=== PATIENT | male | born 1945 | race Caucasian/White ===

== ENCOUNTER 2017-02-02 16:05 | Observation (INO) | payer MEDICARE ==
--- NOTE | ~2017-02-02 | PRECARD ---
H&P [facility] [address] [facility] [place]. [address] NAME: JAIDEN ROSSI : 45 STATUS : ADM Xu PAT#: [id number] AGE: 71 ADM/REG DATE : 02/02/17 MR#: [id number] REPORT SERV DATE: 02/03/17 DICTATED BY: VALENTINA NOVOA DATE: 02/03/17 REPORT STATUS : Draft TRANSCRIBED BY: DEVANTE DATE: 02/03/17 DATE OF ADMISSION: 02/02/2017 HISTORY OF PRESENT ILLNESS: Mr. Jaiden Rossi is a 71-year-old gentleman, admitted after a syncopal episode. Mr. Rossi had a liver transplant in 2013 at [facility]. He has no known cardiovascular disease. 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 He was standing up, not exercising, talking to a player when he suddenly lost consciousness and fell to the ground. He struck his head on the basketball floor, cut his lip, developed ecchymoses around his right eye, and has a small laceration to his forehead. He states he regained consciousness within a few seconds. At that time, he was fully alert and oriented, he recalled that event. He had no lethargy. No incontinence. He did cut his lip. Again, this happened while standing, he was not running. He has not had any prior episodes. He has a history of hypertension and diabetes, when he weighed 300 pounds prior to his liver transplant, but his blood sugars have been controlled since then, he reports. He denies any history of chest discomfort, orthopnea, or PND. He has had no palpitations at all. He had no palpitations in the emergency room when his EKG demonstrated atrial fibrillation. PAST MEDICAL HISTORY: 1. He has had pleural effusion. 2. Prior liver transplant. 3. Chronic kidney disease, creatinines have been about 2.1. 4. Diabetes, off medicines now. MEDICATIONS ON ADMISSION: Dymista, vitamin D, vitamin B, Lasix, Prograf, and tacrolimus. FAMILY HISTORY: Positive for coronary artery disease. REVIEW OF SYSTEMS: Complete review of systems was obtained, pertinent negative and unremarkable except as noted above and below. All systems addressed. PHYSICAL EXAMINATION: VITAL SIGNS: Blood pressure was about 150/80, heart rate 68. GENERAL: Comfortable, in no acute distress. HEENT: A small laceration about three quarters of an inch in the middle of the forehead, small ecchymoses in the right eye. H&P [address] [address] NAME: JAIDEN ROSSI : 45 STATUS : ADM Xu PAT#: [id number] AGE: 71 ADM/REG DATE : 02/02/17 MR#: [id number] REPORT SERV DATE: 02/03/17 DICTATED BY: VALENTINA NOVOA DATE: 02/03/17 REPORT STATUS : Draft TRANSCRIBED BY: DEVANTE DATE: 02/03/17 LUNGS: Clear to auscultation, no wheezes, rales or rhonchi; good breath sounds. COR: No JVD or hepatojugular reflux, no murmurs, rubs or gallops, impulse mid clavicular line without carotid or abdominal bruits; normal S1 and S2. ABDOMEN: Bowel sounds positive, normal activity, without tenderness, masses or hepatosplenomegaly. EXTREMITIES: No edema, cyanosis. SKIN: Normal turgor. Ms: Normal muscle strength, without kyphosis/scoliosis. NEURO/PSYCH: Alert and oriented times 4, no apparent anxiety or depression. LABORATORY AND DIAGNOSTIC DATA: CT of the head, no acute intracranial process. Cervical spine shows no abnormality. Troponin less than 0.02. BUN is 30 and creatinine 2.1. Hematocrit 39%. INR is 1. Telemetry demonstrates sinus rhythm. Initial EKG demonstrates atrial fibrillation, ventricular response about 110 without ischemia. ASSESSMENT: Mr. 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 That was his first episode of syncope, no prior episodes. He does have a history of diabetes and hypertension. He states his blood sugars have been controlled since his liver transplant, but the admission blood sugar was 202, and this morning, it was 147. His risk of stroke without anticoagulation is about 4%, on Eliquis it would be 1.1%. He is currently in sinus rhythm. The syncopal episode may have been related to atrial fibrillation with rapid ventricular response, perhaps a pause. I will check an echocardiogram and thyroid profile. I assume the Hospitalist Service will treat his newly-diagnosed diabetes. We will add medications for blood pressure control. 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 JOANNA/DEVANTE Valentina Novoa M.D. / [id number] CC: Bal Connor M.D.
--- NOTE | ~2017-02-02 | DS ---
Discharge Summary [facility] [address] [place]. [address] NAME: MARIA R ROSSI : 45 STATUS : DIS Xu PAT#: [id number] AGE: 71 ADM/REG DATE : 02/02/17 MR#: [id number] REPORT SERV DATE: 02/05/17 DICTATED BY: CRESCENCIO NORRIS DATE: 02/04/17 REPORT STATUS : Draft TRANSCRIBED BY: MODL DATE: 02/04/17 ADMISSION DATE: 02/02/2017 DISCHARGE DATE: 02/04/2017 PRINCIPAL DIAGNOSIS: Syncope. SECONDARY DIAGNOSES: 1. Atrial fibrillation. 2. Type 2 diabetes. 3. 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 4. Chronic kidney disease, stage 3. HISTORY OF PRESENT ILLNESS: Please see Dr. Cota's dictation on 02/02/2017. HOSPITAL COURSE: Admitted with a syncopal event with a facial injury found to be in atrial fibrillation with RVR. The patient quickly converted to normal sinus rhythm. Echocardiogram was found to be okay. He stayed the night due to concerns of a possible other rhythm disorder and implantable monitor was placed by Dr. Novoa on the morning of 02/04/2017, he tolerated that well. He was able to be discharged in the afternoon of 02/04/2017 in satisfactory condition. Diet as tolerated. Activity as tolerated. He was released on Norvasc, Eliquis 5 mg b.i.d. plus his home medicines such as Prograf, vitamins. He was in normal sinus rhythm at discharge. DICTATED BY: Max Weber/DEVANTE Crescencio Norris M.D. / [id number] CC: Max Weber D.O. Mark Thel, M.D.
--- NOTE | ~2017-02-02 | HP ---
History And Physical [place] [id number] [facility] [place]. [address] NAME: MARIA R ROSSI : 45 STATUS : ADM Xu PAT#: [id number] AGE: 71 ADM/REG DATE : 02/02/17 MR#: [id number] REPORT SERV DATE: 02/03/17 DICTATED BY: RENE RAMIRES DATE: 02/02/17 REPORT STATUS : Draft TRANSCRIBED BY: MODL DATE: 02/02/17 DATE OF ADMISSION: 02/02/2017 CHIEF COMPLAINT: A 71-year-old male presenting with a syncopal episode and evidence of new- onset atrial fibrillation. HISTORY OF PRESENT ILLNESS: The patient's history was obtained through careful interview with the patient, , son, coupled with review of [facility] medical records. 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 He landed square on his forehead and was lying on the ground for about five minutes, but believes he only lost consciousness for 1 or 2 seconds. There is no lightheadedness or other kind of warning prior to passing out, and likewise after he passed out, he had no major symptoms other than the headache from hitting his head on the floor. No palpitations. No shortness of breath. No chest pain. He describes a headache mostly in his forehead, aching quality, 3 to 4/10 in severity. About a week ago, he went to [facility] and was having shortness of breath at an elevation of 9000 feet, but then came back home and was feeling well. REVIEW OF SYSTEMS: Otherwise, a 14-point review of systems was obtained and was negative. PAST MEDICAL HISTORY: 1. Left pleural effusion, followed by Dr. Higgins. 2. History of liver transplant because of [place], followed by doctors at [facility]. The transplant was in July 2014. Previously, he has had a hepatic encephalopathy, ascites, and esophageal varices. 3. History of colonoscopies and upper endoscopy, seen by Dr. Leiva. 4. Chronic kidney disease, stage III. Baseline creatinine of about 2.0 to 2.[address] Follow[address] Khanna. 5. Diabetes, but has been off medications, only diet controlled. He checks his blood sugars about three days a week. PAST SURGICAL HISTORY: 1. Liver transplant in July 2014. 2. Vasectomy. ALLERGIES: NO KNOWN DRUG ALLERGIES. SOCIAL HISTORY: The patient denies smoking. He quit alcohol years ago. He lives in [place], [place], with his of 48 years. They have one child. A son who is at [facility] [address] [address] NAME: MARIA R ROSSI : 45 STATUS : ADM Xu PAT#: [id number] AGE: 71 ADM/REG DATE : 02/02/17 MR#: [id number] REPORT SERV DATE: 02/03/17 DICTATED BY: RENE RAMIRES DATE: 02/02/17 REPORT STATUS : Draft TRANSCRIBED BY: DEVANTE DATE: 02/02/17 bedside. 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 FAMILY HISTORY: Diabetes. Sister with heart disease. CURRENT MEDICATIONS: Include Dymista nasal spray, vitamin D, vitamin B12, Lasix 20 mg p.o. daily, and Prograf 1 mg p.o. b.i.d. PHYSICAL EXAMINATION: VITAL SIGNS: Temperature 97.2, pulse 116, blood pressure 180/94, respiratory rate 16, and O2 saturation 94% on room air. GENERAL: A pleasant, cooperative male. He is in no evidence of distress at all. HEENT: Pupils are equal, round, and reactive to light. No conjunctival pallor. No scleral icterus. Nares are patent. Oropharynx is clear of obstruction. Mildly dry mucous membranes. NECK: Trachea midline. No thyromegaly. LYMPH: No cervical lymphadenopathy. No supraclavicular lymphadenopathy. RESPIRATORY: Clear to auscultation at bases. No wheezes, rales, or rhonchi. Normal respiratory effort. CARDIOVASCULAR: Tachycardic, irregularly irregular. No murmurs, rubs, or gallops. No extremity edema is appreciated. ABDOMEN: Soft, nontender, and nondistended. Normal bowel sounds auscultated throughout. No hepatosplenomegaly. DERMATOLOGICAL: Warm and dry extremities. No pallor. No cyanosis. PSYCHIATRIC: Normal affect. Good mood. Alert and oriented x3. LABORATORY DATA: White blood cell count 5.6, hemoglobin 14, hematocrit 41, and platelets 134. Sodium 140, potassium 4.2, chloride 105, bicarb 29, BUN 31, creatinine 2.29, and glucose 202. Urinalysis negative for infection. Troponin negative. STUDIES: 1. Chest x-ray by my own evaluation shows left pleural effusion. 2. EKG by my own evaluation shows tachycardia and atrial fibrillation. 3. CT scan of the brain without contrast shows no acute intracranial process. 4. CT scan of the cervical spine shows no abnormality. ASSESSMENT AND PLAN: 1. New atrial fibrillation with mild tachycardia. Start p.o. Cardizem. Obtain a Cardiology consult. Check telemetry. Check thyroid. Consider anticoagulation options. Check an echocardiogram. 2. [address] on IV fluids. Hold Lasix. Check telemetry. Check echocardiogram. Check orthostatics. 3. Liver transplant. 4. Chronic kidney disease, stage III. 5. Diabetes. Check hemoglobin A1c. Place on sliding scale insulin for now. History And Physical [address] [address] NAME: MARIA R ROSSI : 45 STATUS : ADM Xu PAT#: [id number] AGE: 71 ADM/REG DATE : 02/02/17 MR#: [id number] REPORT SERV DATE: 02/03/17 DICTATED BY: RENE RAMIRES DATE: 02/02/17 REPORT STATUS : Draft TRANSCRIBED BY: DEVANTE DATE: 02/02/17 GONZALO/DEVANTE Rene Ramires M.D. / [id number] CC: Max Weber D.O.
[~2017-02-02 16:05] MED LIST: ALLEGRA180 PO; ARIMIDEX1 PO; ASAB PO; ASTELIN NAS; B COMPLETE PO; B6 PO; BYDUREON2 MG SQ; CENTRUM TAB1 TAB PO; CLARIT10 PO; CONSTULOSE PO; CRESTOR10 PO; DIOVAN HC1 PO; DIOVAN HCT320 MG/25 PO; DYMISTA NASAL S23 GM NAS; ENULOSE PO; GAS-X80 MG PO; GLUCCHONDR PO; GLUCOPHAGE1000 MG PO; GLUCPH PO; HALF81 PO; L20 PO; L40 PO; METAMUCIL CAN7 OZ PO; MYTAB GAS125 MG; NATURA2 OP; ONGLYZA5 MG PO; OTC EYE DROP OP; PRIN5 PO; PROAMAT5 PO; PROGRAF1 PO; PROTONIX PO; PYRIDOXINE100 MG OR; SPIRO50; SPIRO50 PO; TESTOST CYP100 MG/ML IM; VENTOLIN HFA INH; VICTOZA SC; VIT B-SIX 50 MG50 MG PO; VITAMIN B-121000 MC1 SL; VITAMIN B-122500 MCG SL; VITAMIN B-625 MG OR; VITAMIN B-625 MG PO; VITAMIN D31000 UNIT PO; XIFAXAN550 MG PO
[2017-02-02 16:57] LABS: BASOPHILS 0.2 %; BASOPHILS ABSOLUTE 0.01 10/3/uL (0.0-0.16); EOSINOPHILS 3.2 %; EOSINOPHILS ABSOLUTE 0.18 10/3/uL (0.0-0.53); HEMATOCRIT 40.9 % (40.0-51.0); HEMOGLOBIN 13.6 g/dL (13.6-17.8); IMMATURE GRANULOCYTES 0.5 %; IMMATURE GRANULOCYTES ABSOLUTE 0.03 10/3/uL (0.0-0.11); LYMPHOCYTES 8.9 %; MEAN CORPUS HGB CONC 33.3 g/dL (32.0-36.0); MEAN CORPUSCULAR HEMOGLOB 29.9 pg (26.0-34.0); MEAN CORPUSCULAR VOLUME 89.9 fL (80-100); MEAN PLATELET VOLUME 9.8 fL (9.2-13.0); MONOCYTES 7.3 %; MONOCYTES ABSOLUTE 0.41 10/3/uL (0.21-1.20); NEUTROPHILS 79.9 %; NEUTROPHILS ABSOLUTE 4.48 10/3/uL (2.02-8.40); PLATELET COUNT 134 10/3/uL (150-400); RBC DISTRIBUTION WIDTH 15.9 % (12.0-16.0); RED CELL COUNT 4.55 10/6/uL (4.7-6.1); WHITE BLOOD CELLS 5.6 10/3/uL (4.5-10.5)
[2017-02-02 17:00] LABS: MANUAL DIFF NO %
[2017-02-02 17:04] LABS: PARTIAL THROMBO TIME 29.2 SEC (22.5-37.2); PROTIME (NOT ORD) 12.6 SEC (12.0-14.5)
[2017-02-02 17:12] LABS: BUN (BLOOD UREA NITROGEN) 31 MG/DL (6-23); CHEST PAIN PROFILE TAT 0 Hrs 21 Mins; CHLORIDE, SERUM 105 MMOL/L (96-112); CO2 (CARBON DIOXIDE) 29 MMOL/L (24-34); CREATININE 2.29 MG/DL (0.70-1.30); GFR AFRICAN AMERICAN 32 ML/MIN (>=60); GFR NON AFRICAN AMERICAN 28 ML/MIN (>=60); GLUCOSE, SERUM 202 MG/DL (60-99); POTASSIUM, SERUM 4.2 MMOL/L (3.5-5.3); SODIUM, SERUM 140 MMOL/L (135-148); TROPONIN I <0.02 NG/ML (<0.05)
[2017-02-02 17:19] LABS: ASCORBIC ACID (UR NOT ORDER) NEG (NEG); BILIRUBIN, URINE NEGATIVE (NEG); ER URINALYSIS TAT 0 Hrs 28 Mins; KETONE, URINE NEGATIVE (NEG); LEUKOCYTE ESTERASE(NOT OR NEG (NEG); NITRITE (URINE) NEG (NEG); WBC (NOT ORDERED) (RFLEX) 1 (0-5)
[2017-02-02] MEDS ORDERED: PROGRAF1 PO (21:01)
[2017-02-02] MEDS ORDERED: VITAMIN D31000 UNIT PO (21:02)
[2017-02-02] MEDS ORDERED: L20 PO (21:02)
[2017-02-02] MEDS ORDERED: CYANO1000T PO (21:02)
[2017-02-02] MEDS ORDERED: DYMISTA NASAL S23 GM NAS (21:03)
[2017-02-03 06:01] LABS: HEMATOCRIT 39.4 % (40.0-51.0); HEMOGLOBIN 13.4 g/dL (13.6-17.8); MEAN CORPUSCULAR HEMOGLOB 30.4 pg (26.0-34.0); MEAN CORPUSCULAR VOLUME 89.3 fL (80-100); MEAN PLATELET VOLUME 9.5 fL (9.2-13.0); PLATELET COUNT 123 10/3/uL (150-400); RBC DISTRIBUTION WIDTH 15.8 % (12.0-16.0); RED CELL COUNT 4.41 10/6/uL (4.7-6.1)
[2017-02-03 06:03] LABS: MANUAL DIFF YES %
[2017-02-03 06:05] LABS: PARTIAL THROMBO TIME 28.4 SEC (22.5-37.2)
[2017-02-03 06:06] LABS: PROTIME (NOT ORD) 13.2 SEC (12.0-14.5)
[2017-02-03 06:19] LABS: A/G RATIO 1.1 (0.7-1.9); ALBUMIN 3.5 G/DL (3.5-5.0); ALKALINE PHOSPHATASE 98 U/L (45-117); BUN (BLOOD UREA NITROGEN) 30 MG/DL (6-23); CALCIUM, SERUM 9.3 MG/DL (8.5-10.4); CHLORIDE, SERUM 108 MMOL/L (96-112); CO2 (CARBON DIOXIDE) 26 MMOL/L (24-34); CREATININE 2.13 MG/DL (0.70-1.30); FREE T4 1.03 NG/DL (0.76-1.46); GFR AFRICAN AMERICAN 35 ML/MIN (>=60); GFR NON AFRICAN AMERICAN 30 ML/MIN (>=60); GLOBULIN 3.2 G/DL (2.5-4.1); POTASSIUM, SERUM 4.7 MMOL/L (3.5-5.3); SGOT(AST) 30 U/L (5-40); SGPT(ALT) 46 U/L (5-65); SODIUM, SERUM 137 MMOL/L (135-148); TOTAL BILIRUBIN 0.7 MG/DL (0-1.2); TOTAL PROTEIN 6.7 G/DL (6.0-8.5); TROPONIN I <0.02 NG/ML (<0.05)
[2017-02-03 06:24] LABS: GLUCOSE, SERUM 147 MG/DL (60-99)
[2017-02-03 06:40] LABS: BAND NEUTROPHILS 11 %; EOSINOPHILS 6 %; LYMPHOCYTES 7 %; LYMPHOCYTES ABSOLUTE (CALC) 0.35 10/3/uL (0.67-4.30); METAMYELOCYTES 2 %; MONOCYTES 2 %; NEUTROPHILS ABSOLUTE (CALC) 4.15 10/3/uL (2.02-8.40); PLATELET ESTIMATE SLT DEC (ADEQUATE); RBC MORPHOLOGY NORM (NORMAL); SEGMENTED NEUTROPHIL (0) 72 %; TOTAL NUCLEATED CELLS 100
[2017-02-03 08:25] LABS: GLYCOHEMOGLOBIN (HbA1c) 6.4 % (4.7-6.1)
[2017-02-04] MEDS ORDERED: NORV5 PO (15:58)
[2017-02-04] MEDS ORDERED: ELIQUIS 5 MG TAB5 MG PO (15:58)
[2017-02-04] MEDS ORDERED: MAGOX4 PO (16:03)
[2017-02-04] MEDS ORDERED: ULTRAM50 PO (16:05)
[2017-03-11] MEDS ORDERED: ALLEGRA180 PO (09:16)
[2017-03-11] MEDS ORDERED: NORV10 PO (09:16)
[2017-03-11] MEDS ORDERED: VITAMIN D31000 UNIT PO (09:17)
[2017-03-11] MEDS ORDERED: ARIMIDEX1 PO (09:17)
[2017-03-11] MEDS ORDERED: ACET500CAP PO (09:17)
[2017-03-14] MEDS ORDERED: PROGRAF1 PO (06:22)
== END 2017-02-04 16:41 | disposition home or self-care (01) ==
LOC: ER 16:05 → CDU1 20:35 → CDU2 22:13
PROVIDERS: Emergency Medicine; Internal Medicine
PROC: 0JH602Z Insertion of Monitoring Device into Chest Subcutaneous Tissue and Fascia, Open Approach (ICD-10-PCS; principal; 2017-02-02)
DX: R55 Syncope and collapse (principal); I12.9 Hypertensive chronic kidney disease with stage 1 through stage 4 chronic kidney disease, or unspecified chronic kidney disease; E11.22 Type 2 diabetes mellitus with diabetic chronic kidney disease; N18.3 Chronic kidney disease, stage 3 (moderate); J90 Pleural effusion, not elsewhere classified; Z94.4 Liver transplant status; Z82.49 Family history of ischemic heart disease and other diseases of the circulatory system; Z83.3 Family history of diabetes mellitus; Z79.899 Other long term (current) drug therapy; Z98.890 Other specified postprocedural states
CPT/HCPCS: 33282; 70450; 71010; 71020; 72125; 80048; 80053; 81001; 82962; 83036; 83735; 83880; 84439; 84443; 84484; 85025; 85610; 85730; 93005; 96372; 96374; 99285; A9270-GY; C1764; C8929; G0378; J0690; J2250; J3010; J7507; Q9957